=== PATIENT | male | born 1950 | race Caucasian/White ===

== ENCOUNTER 2017-03-04 17:45 | Emergency (ER) | payer MEDICAID ==
[~2017-03-04] VITALS: Ht 177.8 cm; Wt 80.7 kg
[~2017-03-04 17:45] MED LIST: Acetaminophen PO; DOXY100C2 PO; MORP30TA PO; RISP0.5T2 PO; TRAZ-147 PO
[2017-03-04] MEDS: HYDROMORPHONE 1 MG/1 ML DISP.SYRIN IM ONE (18:01)
--- NOTE | 2017-03-04 18:06 | NUR ---
PT IS IN ROOM #2B. DR VIVAR EVALUATED THE PT.
[2017-03-04] MEDS ORDERED: HYDROMORPHONE 1 MG/1 ML DISP.SYRIN ONE (18:14)
--- NOTE | 2017-03-04 18:40 | NUR ---
PT WAS D/C TO HOME. D/C INSTRUCTIONS GIVEN TO THE PT.
[2017-03-04 18:42] VITALS: BP 143/88
== END 2017-03-04 18:42 | disposition home or self-care (01) ==
LOC: ER 17:49
DX: S20.212A Contusion of left front wall of thorax, initial encounter (principal); Z88.0 Allergy status to penicillin; G89.29 Other chronic pain; W18.30XA Fall on same level, unspecified, initial encounter; Y93.89 Activity, other specified; Y92.9 Unspecified place or not applicable; Y99.9 Unspecified external cause status; M54.9 Dorsalgia, unspecified
CPT/HCPCS: 71101; 93005; A4663; J1170

== ENCOUNTER 2017-06-14 16:00 | Emergency (ER) | payer MEDICARE, MEDICAID ==
[~2017-06-14] VITALS: Ht 177.8 cm; Wt 80.3 kg
[~2017-06-14 16:00] MED LIST changes: -RISP0.5T2 PO; +RISP0.5T5 PO
[2017-06-14] MEDS ORDERED: NEOMY/POLYMYX B/HC OTIC SUSP 10 ML BOTTLE OT ONE (16:30)
--- NOTE | 2017-06-14 16:30 | NUR ---
Patient discharged to home in stable conditon. Written and verbal after care instructions given. Patient verbalizes understanding of instructions.pt walks in steady gait.
[2017-06-14] MEDS ORDERED: NEOMY/POLYMYX B/HC OTIC SUSP 10 ML BOTTLE ONE (16:37)
== END 2017-06-14 16:31 | disposition home or self-care (01) ==
LOC: ER 16:01
DX: H60.91 Unspecified otitis externa, right ear (principal); G89.29 Other chronic pain; Z88.0 Allergy status to penicillin
CPT/HCPCS: 99283; A4663

== ENCOUNTER 2018-12-12 16:04 | Emergency (ER) | payer MEDICARE, MEDICAID ==
[~2018-12-12] VITALS: Ht 177.8 cm; Wt 75.7 kg
[~2018-12-12 16:04] MED LIST changes: -TRAZ-147 PO; +TRAZ-214 PO
[2018-12-12] MEDS ORDERED: IV NORMAL SALINE 1000 ML BAG IV ONE (16:45)
[2018-12-12] MEDS ORDERED: ONDANSETRON 4 MG/2 ML VIAL IV ONE (16:45)
[2018-12-12] MEDS ORDERED: MORPHINE SULFATE 2 MG/1 ML DISP.SYRIN IV ONE (16:45)
[2018-12-12] MEDS ORDERED: ONDANSETRON 4 MG/2 ML VIAL ONE (16:50)
[2018-12-12] MEDS ORDERED: MORPHINE SULFATE 4 MG/1 ML DISP.SYRIN ONE (16:50)
[2018-12-12 17:09] LABS: POTASSIUM 3.4 mmol/L (3.5-5.1)
[2018-12-12 17:10] LABS: BASOPHILS # (AUTO) 0.1 K/uL (0.0-8.0); BASOPHILS % (AUTO) 0.7 % (0.0-2.0); EOSINOPHILS # (AUTO) 0.1 K/uL (0.0-0.7); EOSINOPHILS % (AUTO) 1.1 % (0.0-7.0); HEMOGLOBIN 16.9 g/dL (12.5-16.3); LYMPHOCYTES # (AUTO) 2.4 K/uL (20.0-40.0); MEAN CORPUSCULAR HEMOGLOBIN 29.3 uug (23.8-33.4); MEAN CORPUSCULAR HGB CONC 34 g/dL (32.5-36.3); MEAN CORPUSCULAR VOLUME 86.9 fL (73.0-96.2); MONOCYTES # (AUTO) 0.9 K/uL (2.0-10.0); MONOCYTES % (AUTO) 7.1 % (0.0-11.0); NEUTROPHILS # (AUTO) 8.6 K/uL (1.8-8.9); NEUTROPHILS % (AUTO) 71.1 % (38.5-71.5); PLATELET COUNT (AUTO) 193 K/uL (152-348); RED BLOOD CELL COUNT(AUTO) 5.75 MIL/uL (4.06-5.63); WHITE BLOOD COUNT (AUTO) 12.1 K/uL (3.6-10.2)
[2018-12-12 17:15] LABS: BILIRUBIN,DIRECT 0.2 mg/dL (0.0-0.2); BILIRUBIN,TOTAL 0.8 mg/dL (0.2-1.0); TOTAL PROTEIN, SERUM 7.1 g/dL (6.4-8.2)
--- NOTE | 2018-12-12 17:43 | NUR ---
pt denies nausea. pt eating hospital sandwich and juice with good apetite.
--- NOTE | 2018-12-12 18:18 | NUR ---
Patient discharged to home in stable conditon. Written and verbal after care instructions given. Patient verbalizes understanding of instructions.pt walks in steady gait. pt says feels better. pt notdriving
[2018-12-12 18:19] VITALS: BP 111/77
== END 2018-12-12 18:19 | disposition home or self-care (01) ==
LOC: ER 16:04
DX: F11.23 Opioid dependence with withdrawal (principal); F17.200 Nicotine dependence, unspecified, uncomplicated; Z88.0 Allergy status to penicillin; Z88.8 Allergy status to other drugs, medicaments and biological substances; Z79.899 Other long term (current) drug therapy; Z79.2 Long term (current) use of antibiotics
CPT/HCPCS: 36415; 71045; 80048; 80076; 83690; 84484; 85025; 93005; 96361; 96374; 96375; 99284; J2270; J2405; 70030-TC; A4663; J7030

== ENCOUNTER 2018-12-28 10:36 | Emergency (ER) | payer MEDICARE, MEDICAID ==
[~2018-12-28] VITALS: Ht 180.3 cm; Wt 70.3 kg
--- NOTE | 2018-12-28 10:42 | NUR ---
PT A/OX4, PRESENTS TO THE ER C/O CHRONIC BACK PAIN. PT REPORTS HE IS ON CHRONIC PAIN MANAGEMENT USING MORPHINE BUT RAN OUT OF HIS PRESCRIPTION. HE STATES HE IS "WITHDRAWING". VSS. PT DOES NOT APPEAR TO BE IN ANY APPARENT DISTRESS AT THIS TIME. ER MD AT BEDSIDE FOR MSE.
--- NOTE | 2018-12-28 11:01 | NUR ---
DPatient discharged to home in stable conditon. Written and verbal after care instructions given. Patient verbalizes understanding of instructions. ALL BELONGINGS W/ PT. PT SELF-AMBULATED W/O DIFFICULTY.
[2018-12-28 11:02] VITALS: BP 120/78
== END 2018-12-28 11:02 | disposition home or self-care (01) ==
LOC: ER 10:36
DX: F13.20 Sedative, hypnotic or anxiolytic dependence, uncomplicated (principal); F11.20 Opioid dependence, uncomplicated; G89.29 Other chronic pain; M54.9 Dorsalgia, unspecified; F17.200 Nicotine dependence, unspecified, uncomplicated; Z88.0 Allergy status to penicillin; Z88.8 Allergy status to other drugs, medicaments and biological substances; Z79.2 Long term (current) use of antibiotics; Z79.899 Other long term (current) drug therapy
CPT/HCPCS: A4663

== ENCOUNTER 2019-02-21 23:40 | Inpatient (IN) | payer OTHER, MEDICAID ==
[~2019-02-21] VITALS: Ht 177.8 cm; Wt 79.4 kg
--- NOTE | 2019-02-21 23:50 | NUR ---
PATIENT BIB [facility] FROM HOME FOR NAUSEA ABDOMINAL DISCOMFORT. PATIENT REPORTED "JUST DOESN'T FEEL RIGHT". PER REPORT PATIENT WAS TAKING CBD ALL DAY WHICH CAUSED SYMPTOMS. PATIENT ABLE TO SPEAK IN FULL SENTENCES. ALERT TO SELF ONLY WITH PERIODS OF CONFUSION. IN NO RESPIRATORY DISTRESS. NO CARDIOVASCULAR CONCERN. BED ON LOW AND LOCK POSITION. FALL PRECAUTION PER PROTOCOL.
--- NOTE | 2019-02-21 23:55 | NUR ---
SANJUANITA GRECO at bedside for MSE.
[2019-02-22] MEDS ORDERED: IV NORMAL SALINE 1000 ML BAG IV ONE (00:15)
[2019-02-22] MEDS ORDERED: HYDROCODONE/APAP 5-325MG TABLET PO ONE (00:15)
[2019-02-22] MEDS ORDERED: HYDROCODONE/APAP 5-325MG TABLET ONE (00:25)
[2019-02-22 00:31] LABS: BASOPHILS # (AUTO) 0.1 K/uL (0.0-8.0); EOSINOPHILS # (AUTO) 0.2 K/uL (0.0-0.7); EOSINOPHILS % (AUTO) 1.6 % (0.0-7.0); HEMATOCRIT 47.6 % (36.7-47.1); LYMPHOCYTES # (AUTO) 2.1 K/uL (20.0-40.0); LYMPHOCYTES % (AUTO) 19.8 % (20.5-51.5); MEAN CORPUSCULAR HEMOGLOBIN 28.7 uug (23.8-33.4); MEAN CORPUSCULAR HGB CONC 34 g/dL (32.5-36.3); MEAN CORPUSCULAR VOLUME 85.3 fL (73.0-96.2); MONOCYTES # (AUTO) 0.7 K/uL (2.0-10.0); MONOCYTES % (AUTO) 6.9 % (0.0-11.0); NEUTROPHILS # (AUTO) 7.5 K/uL (1.8-8.9); NEUTROPHILS % (AUTO) 70.7 % (38.5-71.5); PLATELET COUNT (AUTO) 148 K/uL (152-348); RED BLOOD CELL COUNT(AUTO) 5.58 MIL/uL (4.06-5.63); WHITE BLOOD COUNT (AUTO) 10.7 K/uL (3.6-10.2)
[2019-02-22 00:53] LABS: ALANINE AMINOTRANSFERASE 34 U/L (16-63); ALKALINE PHOSPHATASE 88 U/L (50-136); ASPARTATE AMINOTRANSFERASE 22 U/L (15-37); BILIRUBIN,DIRECT 0.3 mg/dL (0.0-0.2); BILIRUBIN,TOTAL 1.3 mg/dL (0.2-1.0); CARBON DIOXIDE 33 mmol/L (21-32); CHLORIDE 95 mmol/L (98-107); GLUCOSE 128 mg/dL (74-106); TOTAL PROTEIN, SERUM 7.4 g/dL (6.4-8.2); UREA NITROGEN, BLOOD 14 mg/dL (7-18)
[2019-02-22 00:55] LABS: POTASSIUM 2.8 mmol/L (3.5-5.1)
[2019-02-22 00:56] LABS: ETHANOL < 3 MG/DL (0-0)
[2019-02-22 01:00] LABS: THYROID STIMULATING HORMONE 1.107 mIU/mL (0.358-3.740)
[2019-02-22] MEDS ORDERED: POTASSIUM BICARBONATE/CIT AC 25 MEQ TABLET.EFF PO ONE (01:00)
[2019-02-22] MEDS ORDERED: POTASSIUM BICARBONATE/CIT AC 25 MEQ TABLET.EFF ONE (01:13)
[2019-02-22] MEDS ORDERED: MS CONTIN PO (01:32)
--- NOTE | 2019-02-22 01:33 | NUR ---
PATIENT UNABLE TO HOME MEDICATION NAMES,DOSAGES AND INTERVALS AT THIS TIME DUE TO CONFUSION.
[2019-02-22 01:54] LABS: *BLOOD, URINE NEGATIVE (NEGATIVE); *CLARITY,URINE CLEAR (CLEAR); *COLOR,URINE DARK YELLOW (YELLOW); *KETONES,URINE 1+ (NEGATIVE); LEUKOCYTE ESTERASE ,URINE NEGATIVE (NEGATIVE); NITRITE, URINE NEGATIVE (NEGATIVE); PH,URINE 6.5 (5.0-8.0); UGLUCOSE NEGATIVE (NEGATIVE)
[2019-02-22 01:59] LABS: *BILIRUBIN,URIN 1+ (NEGATIVE)
[2019-02-22 02:08] LABS: BACTERIA,URINE NONE SEEN /HPF (NONE SEEN); RBC,URINE 0-3 /HPF (0-3); WBC,URINE 0-3 /HPF (0-3)
[2019-02-22 02:09] LABS: MUCUS,URINE MANY /LPF (0-FEW); SQUAMOUS EPITHELIAL CELL,UR FEW /HPF (NONE SEEN)
[2019-02-22 02:10] LABS: *AMPHETAMINE, URINE NEGATIVE (NEGATIVE); *BARBITURATE, URINE NEGATIVE (NEGATIVE); *CANNABINOID, URINE NEGATIVE (NEGATIVE); *COCCAINE, URINE NEGATIVE (NEGATIVE); *OPIATE, URINE POSITIVE (NEGATIVE); *PHENCYCLIDINE SCREEN,URINE NEGATIVE (NEGATIVE)
--- NOTE | 2019-02-22 02:10 | NUR ---
Patient awake and alert x1-2. In no acute distress. VSS.
--- NOTE | 2019-02-22 03:40 | NUR ---
Report given to RENATE Jurado. Patient will transfer to Tele unit room #315.
[2019-02-22] MEDS ORDERED: MAGNESIUM HYDROXIDE 30 ML LIQUID UDC PO PRN (03:45)
[2019-02-22] MEDS ORDERED: Z GUARD REMEDY PASTE 57 GM TUBE TOP PRN (03:45)
[2019-02-22] MEDS ORDERED: ONDANSETRON 4 MG/2 ML VIAL IV PRN (03:45)
--- NOTE | 2019-02-22 04:31 | NUR ---
Pt. admitted to Tele unit room 315, under care of Dr. Doran. Belongs List completed
[2019-02-22] MEDS: IV D5 1/2 NS 1000 ML 1,000 ML IV PRN (05:33)
--- NOTE | 2019-02-22 07:15 | NUR ---
RECEIVED PATIENT in bed. PATIENT AOX2. PATIENT DENIES PAIN OR SOB AT THIS TIME. PATIENT IS PARANOID AND ANXIOUS STATING THAT THERE IS NOT ENOUGH FLUID IN HIS BODY AND THAT THE IV IS GIVING HIM A CLOT. LEFT AC INTACT AND FLUSHING WELL WITH D5 1/2 NS AT 75C/HR. DENIES SUICIDAL PLAN BUT STATED TO THE NURSE "IM GOING TO ". SAFETY AND FALL PREVENTION IN PLACE. BED IN LOW POSITION AND LOCKED.SEIZURE PRECAUTIONS IN PLACE. CALL LIGHT IN REACH. WILL CONTINUE TO MONITOR.
[2019-02-22] MEDS ORDERED: ALPRAZOLAM 0.25 MG TABLET PO ONE (09:00)
--- NOTE | 2019-02-22 17:54 | NUR ---
PATIENT AOX2, POOR HISTORIAN. PATIENT CONTINUES TO BE CONFUSED, PARANOID, ANXIOUS THROUGHOUT THE SHIFT. MD CONSULTATION TO BE SEEN BY PSYCH MD HAS BEEN ORDERED AND MD HAS BEEN CALLED. VITAL SIGNS HAVE BEEN STABLE THROUGHOUT THE SHIFT. LT. AC IV REMOVED BY RN DUE TO PATIENT COMPLAINING OF PAIN. LT FA IV HAS BEEN PLACED AND IT IS RUNNING D51/2NS AT 75CC/HR. PATIENT COMPLAINS OF PAIN TO RIGHT ARM. MD NOTIFIED BUT NO MEDICATION HAS BEEN ORDERED. PATIENT ON TELY MONITOR WITH AMELIA RHYTHM HR 60'S THROUGHOUT THE SHIFT. REPORT WILL BE GIVEN TO ONCOMING RN.
[2019-02-22 20:00] VITALS: BP 132/73
[2019-02-22] MEDS: LORAZEPAM 2 MG/1 ML VIAL IV PRN (20:16)
[2019-02-22] MEDS: TRAZODONE 100 MG TABLET PO SCH (20:17)
[2019-02-23] VITALS: BP 121/70
[2019-02-23] MEDS: IV D5 1/2 NS 1000 ML 1,000 ML IV PRN ×2 (00:49→14:46)
[2019-02-23 04:00] VITALS: BP 124/74
--- NOTE | 2019-02-23 07:16 | NUR ---
Nurse Notes: report from the night nurse Сергей Sesay RN, IV is at 75 cc per hour. pain level was elevated only tylenol is ordered for pain. IV intact right arm.
--- NOTE | 2019-02-23 08:53 | NUR ---
Nurse Notes: patient is complaining of pain 10/10. charge nurse Kirsty stated no other pain medications is needed, given Ativan to keep patient calm. Patient states takes Morphine ER 2-60 mg BID and Morphine IR 2 - 15 mg every 6 hours in between the Morphine ER. IV site right forearm is patent. no swelling. patient to be given Ativan IV, patient is crying.
[2019-02-23] MEDS: LORAZEPAM 2 MG/1 ML VIAL IV PRN (09:03)
[2019-02-23] MEDS: ACETAMINOPHEN 325 MG TABLET PO PRN ×2 (09:07→18:29)
[2019-02-23 09:51] VITALS: BP 104/60
[2019-02-23 10:17] LABS: BASOPHILS # (AUTO) 0.1 K/uL (0.0-8.0); BASOPHILS % (AUTO) 1.1 % (0.0-2.0); EOSINOPHILS # (AUTO) 0.1 K/uL (0.0-0.7); EOSINOPHILS % (AUTO) 1.7 % (0.0-7.0); HEMATOCRIT 43.1 % (36.7-47.1); HEMOGLOBIN 14.3 g/dL (12.5-16.3); LYMPHOCYTES # (AUTO) 1.3 K/uL (20.0-40.0); LYMPHOCYTES % (AUTO) 16.4 % (20.5-51.5); MEAN CORPUSCULAR HEMOGLOBIN 28.6 uug (23.8-33.4); MEAN CORPUSCULAR HGB CONC 33 g/dL (32.5-36.3); MONOCYTES # (AUTO) 0.5 K/uL (2.0-10.0); MONOCYTES % (AUTO) 5.7 % (0.0-11.0); NEUTROPHILS % (AUTO) 75.1 % (38.5-71.5); PLATELET COUNT (AUTO) 133 K/uL (152-348); RED BLOOD CELL COUNT(AUTO) 5.01 MIL/uL (4.06-5.63); WHITE BLOOD COUNT (AUTO) 7.9 K/uL (3.6-10.2)
[2019-02-23 10:34] LABS: CREATININE 0.8 mg/dL (0.6-1.3); MAGNESIUM 1.8 mg/dL (1.8-2.4)
[2019-02-23 10:54] VITALS: BP 116/62
[2019-02-23 12:37] LABS: THYROID STIMULATING HORMONE 1.044 mIU/mL (0.358-3.740)
[2019-02-23] MEDS ORDERED: LORAZEPAM 1 MG TABLET PO PRN (13:00)
[2019-02-23] MEDS ORDERED: POTASSIUM CHLORIDE 20 MEQ TAB.PRT.SR PO ONE (13:00)
[2019-02-23 15:34] VITALS: BP 117/72
--- NOTE | 2019-02-23 16:15 | NUR ---
Pain management Dr Pedro Davis was called. answering service will contact doctor to return call.
--- NOTE | 2019-02-23 18:19 | NUR ---
Nurse Notes: patient is asking why Dr Pedro Gann is not visiting him yet, patient is waiting for pain medications, tylenol was only given.
--- NOTE | 2019-02-23 18:55 | NUR ---
Nurse Notes: pain management MD is here Dr Pedro George, pain medications will be ordered.
[2019-02-23] MEDS: OXYCODONE/APAP 5-325 MG TABLET PO PRN (20:00)
[2019-02-23] MEDS: METHADONE HCL 10 MG TABLET PO SCH (20:00)
--- NOTE | 2019-02-23 20:00 | NUR ---
PATIENT RECEIVED AWAKE AND ALERT IN BED. HAS COMPLAINTS OF PAIN WHICH WERE ADDRESSED WITH PRESCRIBED MEDICATION. PATIENT REFUSED TO TAKE PRESCRIBED METHADONE BECAUSE HE DOES NOT AGREE WITH THE MD'S ORDER AND HE WILL TELL HIS PRIMARY CARE IN THE MORNING. IV SITE IS PATENT AND INTACT. ALL SAFETY, SEIZURE, AND FALL PRECAUTION MEASURES ARE IN PLACE. CALL LIGHT AND PERSONAL ITEM WITHIN REACH AT ALL TIMES. WILL CONTINUE TO MONITOR.
[2019-02-23 20:09] VITALS: BP 138/80
[2019-02-23] MEDS: TOPIRAMATE 25 MG TABLET PO SCH (20:52)
[2019-02-23] MEDS: TRAZODONE 100 MG TABLET PO SCH (20:53)
--- NOTE | 2019-02-23 21:00 | NUR ---
PATIENT REFUSING TO TAKE PRESCRIBED TOPAMAX BECAUSE HE SAYS HE DOES NOT HAVE SEIZURES NOR DOES HE HAVE MIGRAINES. 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 I EXPLAINED THE RISK/BENEFITS TIMES 3 AND STILL REFUSED.
[2019-02-24] MEDS: OXYCODONE/APAP 5-325 MG TABLET PO PRN ×3 (01:54→15:10)
[2019-02-24] MEDS: IV D5 1/2 NS 1000 ML 1,000 ML IV PRN (05:16)
[2019-02-24 05:53] VITALS: BP 126/76
--- NOTE | 2019-02-24 06:40 | NUR ---
PATIENT SLEPT INTERMITTENTLY THROUGHOUT NIGHT WITH ONE COMPLAINT OF PAIN AT 0200, FOR WHICH HE WAS GIVEN PRESCRIBED PERCOCET FOR RELIEF. PATIENT TOOK PRESCRIBED TRAZADONE AT 2100 BUT REFUSED METHADONE BECAUSE HE DOES NOT AGREE WITH THE PRESCRIPTION FROM DOCTOR ADN ALSO REFUSED PRESCRIBED TOPAMAX BECAUSE HE STATED HE DOES NOT EXPERIENCE SEIZURES OR MIGRAINES. VS ARE WNL BP 126/76, HR 68, 02 SAT 98% ROOM AIR. ALL SAFETY AND FALL PRECAUTION MEASURES REMAIN IN PLACE. CALL LIGHT AND PERSONAL ITEMS WITHIN REACH AT ALL TIMES. WILL PROVIDE REPORT TO AM NURSE.
[2019-02-24 07:27] LABS: CREATININE 0.7 mg/dL (0.6-1.3); MAGNESIUM 1.9 mg/dL (1.8-2.4); PHOSPHOROUS 3.6 mg/dL (2.5-4.9); POTASSIUM 3.7 mmol/L (3.5-5.1)
[2019-02-24 07:30] LABS: BASOPHILS # (AUTO) 0.1 K/uL (0.0-8.0); BASOPHILS % (AUTO) 0.6 % (0.0-2.0); EOSINOPHILS # (AUTO) 0.2 K/uL (0.0-0.7); EOSINOPHILS % (AUTO) 2.4 % (0.0-7.0); HEMOGLOBIN 14.3 g/dL (12.5-16.3); LYMPHOCYTES # (AUTO) 2.2 K/uL (20.0-40.0); LYMPHOCYTES % (AUTO) 27.5 % (20.5-51.5); MEAN CORPUSCULAR HEMOGLOBIN 28.6 uug (23.8-33.4); MEAN CORPUSCULAR HGB CONC 33 g/dL (32.5-36.3); MEAN CORPUSCULAR VOLUME 86.3 fL (73.0-96.2); MONOCYTES # (AUTO) 0.5 K/uL (2.0-10.0); MONOCYTES % (AUTO) 6.7 % (0.0-11.0); NEUTROPHILS % (AUTO) 62.8 % (38.5-71.5); PLATELET COUNT (AUTO) 142 K/uL (152-348); RED BLOOD CELL COUNT(AUTO) 4.99 MIL/uL (4.06-5.63)
--- NOTE | 2019-02-24 07:30 | NUR ---
Patient awake, alert, not in any form of distress. No complain of any discomfort at this time. Call light placed within reach. Assisted with his needs.
--- NOTE | 2019-02-24 07:42 | NUR ---
I ASKED PATIENT ABOUT HIS WISHES REGARDING CPR SHOULD HIS HEART STOP AND PATIENT STATED THAT HE HAS A DNR THAT IS WITH HIS ESTRANGED . PATIENT STATES THAT HE IS OKAY WITH HAVING "PADDLES" USED TO RESTART HIS HEART, BUT DOES NOT WANT ANY MACHINES HELPING HIM BREATHE OR KEEPING HIS HEART GOING. I ADVISED PATIENT THAT I WILL REFER HIM TO CASE MANAGEMENT FOR INFORMATION ON ADVANCE DIRECTIVES. PATIENT SAID OKAY. CASE MANAGEMENT ORDER PLACED.
[2019-02-24] MEDS: METHADONE HCL 10 MG TABLET PO SCH (08:00)
[2019-02-24 08:30] VITALS: BP 129/67
[2019-02-24] MEDS: TOPIRAMATE 25 MG TABLET PO SCH (08:56)
[2019-02-24 11:46] VITALS: BP 111/63
--- NOTE | 2019-02-24 13:48 | NUR ---
WOUND CARE CONSULT: PT PRESENTS WITH INTACT SKIN AND HEALED DRY BLISTER TO RT GREAT TOE, PRESENT ON ADMISSION. NO DRAINAGE, REDNESS OR TENDERNESS NOTED. PT IS INDEPENDENT WITH BED MOBILITY AND CONTINENT AT THIS TIMES. WILL SEE PRN. CURRENT KARENA SCORE IS 19.
[2019-02-24] MEDS ORDERED: Oxycodone/Apap 5-325 Mg PO (14:36)
[2019-02-24] MEDS ORDERED: TRAZ-214 PO (14:36)
[2019-02-24] MEDS ORDERED: TOPI25TA PO (14:36)
[2019-02-24] MEDS ORDERED: METH10TA PO (14:37)
[2019-02-24 15:46] VITALS: BP 118/73
--- NOTE | 2019-02-24 19:07 | NUR ---
Discharge instructions provided to the patient with verbalized understanding. All belongings well accounted for. Discharge papers signed by and given to the patient including prescription. Patient remains alert, oriented x 3, ambulatory, not in any form of distress. He denies any pain or discomfort at this time. Patient picked up by his daughter Malu, his niece and granddaughter via private car. Assisted patient to the parking lot via wheelchair by the TAILOR FITTER.
== END 2019-02-24 19:10 | disposition home or self-care (01) | DRG 896 ==
LOC: ER 23:43 → TELE3 02-22 03:30 → MEDSURG3 02-23 12:09
PROVIDERS: ADMIT Student in an Organized Health Care Education/Training Program; ATTEND Registered Nurse
PROC: HZ2ZZZZ Detoxification Services for Substance Abuse Treatment (ICD-10-PCS; principal; 2019-02-22)
DX: F13.239 Sedative, hypnotic or anxiolytic dependence with withdrawal, unspecified (principal); G92 Toxic encephalopathy; F11.20 Opioid dependence, uncomplicated; G89.4 Chronic pain syndrome; F17.210 Nicotine dependence, cigarettes, uncomplicated; Z85.038 Personal history of other malignant neoplasm of large intestine; M47.816 Spondylosis without myelopathy or radiculopathy, lumbar region; F32.9 Major depressive disorder, single episode, unspecified; E11.65 Type 2 diabetes mellitus with hyperglycemia; Z91.19 Patient's noncompliance with other medical treatment and regimen; Z90.49 Acquired absence of other specified parts of digestive tract; Z63.8 Other specified problems related to primary support group; E87.6 Hypokalemia; F12.10 Cannabis abuse, uncomplicated; I49.3 Ventricular premature depolarization; Z59.0 Homelessness; R09.02 Hypoxemia; M51.36 Other intervertebral disc degeneration, lumbar region; G47.9 Sleep disorder, unspecified; Z86.69 Personal history of other diseases of the nervous system and sense organs; Z86.19 Personal history of other infectious and parasitic diseases
CPT/HCPCS: 36415; 70030-TC; 70450; 71045; 80307; 83605; 83735; 84100; 84443; 85025; 85730; 87040; 87086; 93005; G0378; G0480; J2060; J3490

== ENCOUNTER 2019-03-05 13:52 | Inpatient (IN) | payer OTHER, MEDICAID ==
[~2019-03-05] VITALS: Ht 185.4 cm; Wt 67.6 kg
[~2019-03-05 13:52] MED LIST changes: -Acetaminophen PO; -DOXY100C2 PO; +METH10TA PO; -MORP30TA PO; +Oxycodone/Apap 5-325 Mg PO; -RISP0.5T5 PO; +TOPI25TA PO
--- NOTE | 2019-03-05 14:03 | NUR ---
PT A/OX4, BIB [facility], C/O GENERALIZED WEAKNESS. PT REPORTS HE WAS D/C FROM [facility] AND CONTINUED TO FEEL WEAK SINCE THE D/C. PER HAMMER OPERATOR'S REPORT, BS WAS 135 IN THE FIELD. VSS. NAD. PT DENIES PAIN, C/P, SOB, N/V/D, DIZZINESS, HEADACHE.
[2019-03-05] MEDS ORDERED: ISOS30TA6 PO (14:05)
[2019-03-05] MEDS ORDERED: METO25TA6 PO (14:05)
[2019-03-05] MEDS ORDERED: OXYC-133 PO (14:05)
[2019-03-05] MEDS ORDERED: ASPI81TA31 PO (14:05)
[2019-03-05] MEDS ORDERED: ATOR80TA PO (14:05)
[2019-03-05] MEDS ORDERED: LACT1CAP57 PO (14:05)
[2019-03-05] MEDS ORDERED: IV NORMAL SALINE 1000 ML BAG IV ONE (14:45)
--- NOTE | 2019-03-05 14:58 | NUR ---
ROCK LATHER AT BEDSIDE.
[2019-03-05 15:00] LABS: BASOPHILS # (AUTO) 0.1 K/uL (0.0-8.0); BASOPHILS % (AUTO) 0.8 % (0.0-2.0); EOSINOPHILS # (AUTO) 0.1 K/uL (0.0-0.7); EOSINOPHILS % (AUTO) 1.1 % (0.0-7.0); HEMATOCRIT 43.8 % (36.7-47.1); HEMOGLOBIN 14.2 g/dL (12.5-16.3); LYMPHOCYTES # (AUTO) 1.4 K/uL (20.0-40.0); LYMPHOCYTES % (AUTO) 18.7 % (20.5-51.5); MEAN CORPUSCULAR HEMOGLOBIN 27.9 uug (23.8-33.4); MEAN CORPUSCULAR HGB CONC 32 g/dL (32.5-36.3); MEAN CORPUSCULAR VOLUME 86.4 fL (73.0-96.2); MONOCYTES # (AUTO) 0.4 K/uL (2.0-10.0); MONOCYTES % (AUTO) 5.1 % (0.0-11.0); NEUTROPHILS # (AUTO) 5.4 K/uL (1.8-8.9); NEUTROPHILS % (AUTO) 74.3 % (38.5-71.5); PLATELET COUNT (AUTO) 168 K/uL (152-348); RED BLOOD CELL COUNT(AUTO) 5.07 MIL/uL (4.06-5.63); WHITE BLOOD COUNT (AUTO) 7.3 K/uL (3.6-10.2)
[2019-03-05 15:06] LABS: CREATININE 0.8 mg/dL (0.6-1.3); POTASSIUM 3.7 mmol/L (3.5-5.1)
[2019-03-05 15:19] LABS: BILIRUBIN,DIRECT 0.2 mg/dL (0.0-0.2); BILIRUBIN,TOTAL 0.7 mg/dL (0.2-1.0); TOTAL PROTEIN, SERUM 6.7 g/dL (6.4-8.2)
[2019-03-05 16:09] LABS: *BILIRUBIN,URIN NEGATIVE (NEGATIVE); *BLOOD, URINE NEGATIVE (NEGATIVE); *CLARITY,URINE CLEAR (CLEAR); *COLOR,URINE YELLOW (YELLOW); *KETONES,URINE TRACE (NEGATIVE); *UROBILINOGEN,URINE 0.2 E.U./dl (NORMAL); LEUKOCYTE ESTERASE ,URINE NEGATIVE (NEGATIVE); NITRITE, URINE NEGATIVE (NEGATIVE); UGLUCOSE NEGATIVE (NEGATIVE)
[2019-03-05 16:19] LABS: RBC,URINE NONE SEEN /HPF (0-3)
[2019-03-05 16:20] LABS: BACTERIA,URINE NONE SEEN /HPF (NONE SEEN); SQUAMOUS EPITHELIAL CELL,UR NONE SEEN /HPF (NONE SEEN); WBC,URINE 0-3 /HPF (0-3)
--- NOTE | 2019-03-05 17:21 | NUR ---
ADMITTING REPORT GIVEN TO KAREEN ONEAL.
--- NOTE | 2019-03-05 17:22 | NUR ---
Pt. admitted to TELE 320, under care of Dr. PEÑA. Belongs List completed
[2019-03-05 18:06] VITALS: BP 137/75
--- NOTE | 2019-03-05 18:13 | NUR ---
68 year old male received from er via gurney to room 320 for chest pain ,pt is axox4,call light with in reach.v/s are stable.md called for admission orders
[2019-03-05] MEDS ORDERED: ACETAMINOPHEN 325 MG TABLET PO PRN (18:30)
[2019-03-05] MEDS ORDERED: NITROGLYCERIN 0.4 MG/TAB BOTTLE SL PRN (18:30)
[2019-03-05] MEDS ORDERED: MORPHINE SULFATE 2 MG/1 ML DISP.SYRIN IV PRN (18:30)
[2019-03-05] MEDS ORDERED: ONDANSETRON 4 MG/2 ML VIAL IV PRN (18:30)
[2019-03-05] MEDS ORDERED: ZOLPIDEM 5 MG TABLET PO PRN (18:30)
[2019-03-05] MEDS ORDERED: Z GUARD REMEDY PASTE 57 GM TUBE TOP PRN (18:30)
[2019-03-05] MEDS ORDERED: MAGNESIUM HYDROXIDE 30 ML LIQUID UDC PO PRN (18:30)
[2019-03-05 20:10] VITALS: BP 135/81
[2019-03-05] MEDS: OXYCODONE/APAP 5-325 MG TABLET PO PRN (20:46)
[2019-03-05] MEDS: ATORVASTATIN 40 MG TABLET PO SCH (20:52)
[2019-03-06 00:58] VITALS: BP 135/84
[2019-03-06] MEDS: OXYCODONE/APAP 5-325 MG TABLET PO PRN ×3 (02:50→17:23)
[2019-03-06 04:47] VITALS: BP 141/72
[2019-03-06 06:32] LABS: BASOPHILS # (AUTO) 0.1 K/uL (0.0-8.0); BASOPHILS % (AUTO) 0.6 % (0.0-2.0); EOSINOPHILS # (AUTO) 0.2 K/uL (0.0-0.7); HEMATOCRIT 43.8 % (36.7-47.1); HEMOGLOBIN 14.3 g/dL (12.5-16.3); LYMPHOCYTES % (AUTO) 23.2 % (20.5-51.5); MEAN CORPUSCULAR HEMOGLOBIN 28.3 uug (23.8-33.4); MEAN CORPUSCULAR HGB CONC 33 g/dL (32.5-36.3); MEAN CORPUSCULAR VOLUME 86.4 fL (73.0-96.2); MONOCYTES # (AUTO) 0.5 K/uL (2.0-10.0); MONOCYTES % (AUTO) 6.3 % (0.0-11.0); NEUTROPHILS # (AUTO) 5.7 K/uL (1.8-8.9); NEUTROPHILS % (AUTO) 67.9 % (38.5-71.5); PLATELET COUNT (AUTO) 159 K/uL (152-348); RED BLOOD CELL COUNT(AUTO) 5.07 MIL/uL (4.06-5.63); WHITE BLOOD COUNT (AUTO) 8.4 K/uL (3.6-10.2)
[2019-03-06 06:54] LABS: CREATININE 0.8 mg/dL (0.6-1.3); MAGNESIUM 1.7 mg/dL (1.8-2.4); PHOSPHOROUS 3.3 mg/dL (2.5-4.9); POTASSIUM 3.6 mmol/L (3.5-5.1)
--- NOTE | 2019-03-06 07:20 | NUR ---
received patient alert and oriented, patient in bed laying comfortably with no SOB noted at this time , bed low position and 2 side rails up , bed alarm on. will continue monitor, will continue treatment plan.
[2019-03-06] MEDS: PANTOPRAZOLE SODIUM 40 MG TABLET.DR PO SCH (07:51)
[2019-03-06] MEDS: ASPIRIN 81 MG TAB.CHEW PO SCH (08:08)
[2019-03-06] MEDS: CULTURELLE CAPSULE PO SCH ×2 (08:08→17:25)
[2019-03-06] MEDS: ISOSORBIDE MONONITRATE 30 MG TAB.SR.24H PO SCH (08:08)
[2019-03-06] MEDS: METOPROLOL TARTRATE 25 MG TABLET PO SCH ×2 (08:09→17:00)
[2019-03-06 11:30] VITALS: BP 101/55
[2019-03-06] MEDS: MAGNESIUM SULFATE/D5W 100 ML IV SCH ×2 (14:54→15:56)
[2019-03-06 15:02] VITALS: BP 100/59
--- NOTE | 2019-03-06 18:39 | NUR ---
Patient calm and comfortable in bed ; patient evening dose of Lopressor held due to blood pressure not with in parameters . Patient pain controlled with prn Percocet.
[2019-03-06 19:50] VITALS: BP 118/78
--- NOTE | 2019-03-06 20:00 | NUR ---
RECEIVED PATIENT AWAKE IN BED. A/O X3. DENIES PAIN AT THIS TIME. NO RESP. DISTRESS NOTED. H/L INTACT AND PATENT, NOTED TO LEFT AC #20 GAUGE. BED ALARM ON. CALL LIGHT IN REACH. WILL CONTINUE TO MONITOR AND ASSESS.
[2019-03-06] MEDS: ATORVASTATIN 40 MG TABLET PO SCH ×2 (20:06→21:00)
[2019-03-06] MEDS ORDERED: LORAZEPAM 1 MG TABLET PO ONE (21:00)
--- NOTE | 2019-03-06 21:00 | NUR ---
PATIENT GIVEN ATIVAN 1MG PO PRN ORDERED FOR SLEEP. PATIENT REPORTED, AMBIEN WAS INEFFECTIVE LAST NIGHT. RECEIVED ORDER FROM ALBERTO BARROSO FOR ATIVAN X1 FOR SLEEP. BED ALARM ON. WILL CONTINUE TO MONITOR AND ASSESS.
--- NOTE | 2019-03-06 21:30 | NUR ---
PATIENT STATED HE IS UNABLE TO URINATE. BLADDER SCANNED PATIENT AND RECEIVED 400CC. CALLED OUT TO ALBERTO BARROSO FOR FURTHER ORDERS. WILL CONTINUE TO MONITOR AND ASSESS.
--- NOTE | 2019-03-06 21:45 | NUR ---
PATIENT STRAIGHT-CATH'D ORDERED. RECEIVED 350cc OF URINE.
--- NOTE | 2019-03-06 23:00 | NUR ---
PATIENT ASLEEP IN BED. SLEEPING WELL. NO S/S OF PAIN OR DISCOMFORT. BED ALARM ON. CALL LIGHT IN REACH. WILL CONTINUE TO MONITOR AND ASSESS.
--- NOTE | 2019-03-07 05:30 | NUR ---
PATIENT AWAKE IN BED. SLEPT WELL THROUGHOUT THE NIGHT. PATIENT C/O PAIN IN LOWER BACK. PATIENT GIVEN PERCOCET 1 TAB PO PRN FOR PAIN. NO RESP. DISTRESS NOTED. VS WNL. CALL LIGHT IN REACH. ALL NEEDS ATTENDED. WILL CONTINUE TO MONITOR AND ASSESS.
[2019-03-07] MEDS: OXYCODONE/APAP 5-325 MG TABLET PO PRN (05:32)
[2019-03-07 05:42] VITALS: BP 119/64
[2019-03-07] MEDS: PANTOPRAZOLE SODIUM 40 MG TABLET.DR PO SCH (06:12)
[2019-03-07 07:46] LABS: MAGNESIUM 2.1 mg/dL (1.8-2.4); POTASSIUM 4.3 mmol/L (3.5-5.1)
[2019-03-07] MEDS: METOPROLOL TARTRATE 25 MG TABLET PO SCH ×2 (08:04→16:04)
[2019-03-07] MEDS: ASPIRIN 81 MG TAB.CHEW PO SCH (08:04)
[2019-03-07] MEDS: CULTURELLE CAPSULE PO SCH ×2 (08:04→16:03)
[2019-03-07] MEDS: ISOSORBIDE MONONITRATE 30 MG TAB.SR.24H PO SCH (08:04)
[2019-03-07] MEDS ORDERED: OXYCODONE/APAP 5-325 MG TABLET PO PRN ×2 (09:00)
[2019-03-07] MEDS ORDERED: LORAZEPAM 0.5 MG TABLET PO PRN (09:00)
[2019-03-07] MEDS ORDERED: BISACODYL 5 MG TABLET.DR PO ONE (09:15)
[2019-03-07 09:57] LABS: BASOPHILS # (AUTO) 0.1 K/uL (0.0-8.0); EOSINOPHILS # (AUTO) 0.2 K/uL (0.0-0.7); EOSINOPHILS % (AUTO) 1.9 % (0.0-7.0); HEMATOCRIT 43.5 % (36.7-47.1); HEMOGLOBIN 14.5 g/dL (12.5-16.3); LYMPHOCYTES # (AUTO) 1.8 K/uL (20.0-40.0); LYMPHOCYTES % (AUTO) 17.8 % (20.5-51.5); MEAN CORPUSCULAR HEMOGLOBIN 28.4 uug (23.8-33.4); MEAN CORPUSCULAR HGB CONC 33 g/dL (32.5-36.3); MEAN CORPUSCULAR VOLUME 85.2 fL (73.0-96.2); MONOCYTES # (AUTO) 0.6 K/uL (2.0-10.0); MONOCYTES % (AUTO) 6.6 % (0.0-11.0); NEUTROPHILS # (AUTO) 7.2 K/uL (1.8-8.9); NEUTROPHILS % (AUTO) 72.7 % (38.5-71.5); PLATELET COUNT (AUTO) 183 K/uL (152-348); RED BLOOD CELL COUNT(AUTO) 5.11 MIL/uL (4.06-5.63); WHITE BLOOD COUNT (AUTO) 9.9 K/uL (3.6-10.2)
[2019-03-07 10:12] LABS: POTASSIUM 4.2 mmol/L (3.5-5.1)
[2019-03-07 11:55] VITALS: BP 106/76
[2019-03-07 15:55] VITALS: BP 92/67
[2019-03-07 16:04] VITALS: BP 98/66
--- NOTE | 2019-03-07 17:26 | NUR ---
D/C ORDERS RECEIVED NOTED AND CARRIED OUT, RN REPORT GIVEN TO RESIDENTIAL RN LOC [facility] PER MD ORDERS,PT LEFT THE FACILITY VIA AMBULANCES IN STABLE CONDITION
== END 2019-03-07 17:35 | DRG 92 ==
LOC: ER 13:54 → TELE3 17:32 → MEDSURG3 03-06 13:50
DX: G89.4 Chronic pain syndrome (principal); F11.20 Opioid dependence, uncomplicated; R07.89 Other chest pain; Z59.0 Homelessness; I25.2 Old myocardial infarction; I25.10 Atherosclerotic heart disease of native coronary artery without angina pectoris; F29 Unspecified psychosis not due to a substance or known physiological condition; E11.9 Type 2 diabetes mellitus without complications; Z91.19 Patient's noncompliance with other medical treatment and regimen; Z86.14 Personal history of Methicillin resistant Staphylococcus aureus infection; G40.909 Epilepsy, unspecified, not intractable, without status epilepticus; Z87.828 Personal history of other (healed) physical injury and trauma; F19.10 Other psychoactive substance abuse, uncomplicated; F17.210 Nicotine dependence, cigarettes, uncomplicated; Z79.82 Long term (current) use of aspirin; Z93.3 Colostomy status; Z85.038 Personal history of other malignant neoplasm of large intestine
CPT/HCPCS: 36415; 70030-TC; 71045; 83605; 83735; 84100; 84443; 85025; 85730; 87040; 87086; 93005; 93307; 97116; 97530; A4663; C1758; G0378; J3475; J7030